=== PATIENT | male | born 1995 | race Hispanic/Latino ===

== ENCOUNTER 2017-07-17 07:09 | Emergency (ER) | payer SELFPAY ==
[2017-07-17] MEDS ORDERED: ONDANSETRON ODT 4 MG TAB ONE (07:17)
[2017-07-17] MEDS ORDERED: SODIUM CHLORIDE 0.9% 1000ML 1,000 ML IV ONE (07:17)
== END 2017-07-17 08:21 | disposition home or self-care (01) ==
LOC: EDH 07:09
DX: F10.129 Alcohol abuse with intoxication, unspecified (principal); R11.10 Vomiting, unspecified
CPT/HCPCS: 96360; 99284; J7030